=== PATIENT | female | born 1970 | race Caucasian/White ===

== ENCOUNTER 2024-05-02 08:34 | Outpatient (CLI) | payer OTHER, SELFPAY ==
--- NOTE | ~2024-05-02 | MR_ITS ---
EXAMINATION: MR brain/brain stem wo con DATE: 05/02/2024 09:08 INDICATION: Seizures TECHNIQUE: Magnetic resonance imaging (MRI) of the brain and brainstem was performed without intraven ous contrast. Sequences included sagittal and axial T1-weighted SE, axial diffusion-weighted FS SE, a xial T2*-weighted GRE, axial T2-weighted FLAIR, and axial T2-weighted FSE. Apparent diffusion coeffic ient (ADC) maps were created. COMPARISON: None. FINDINGS: There are no areas of restricted diffusion to suggest acute infarction. No intracranial hemorrhage or abnormal intracranial mass lesion. Single small focus of nonspecific increased T2-weighted signal in tensity in left frontal lobe periventricular white matter which is within normal limits and likely se quela of chronic small vessel ischemic disease.. There are no intraparenchymal signal abnormalities s een on the other pulse sequences. The ventricles are symmetric and normal in size. There are no abnor mal extra-axial fluid collections. Flow voids are seen in the cerebral arteries on the T2-weighted se quences consistent with their expected patency. Mild mucoperiosteal thickening the ethmoid sinuses. M inimal right mastoid effusion. Visualized orbits and soft tissues are unremarkable. Likely developmen mis fusion at C2-C3 and moderate disc height loss at C4-C5. IMPRESSION: 1. Normal for age brain with single focus of nonspecific white matter T2 hyperintensity right frontal lobe likely sequela of chronic small vessel ischemic disease. Reviewed, dictated and finalized at location A. [facility] IMPRESSION: 1. Normal for age brain with single focus of nonspecific white matter T2 hyperi ntensity right frontal lobe likely sequela of chronic small vessel ischemic dis ease.
== END 2024-05-02 08:35 | disposition home or self-care (01) ==
PROVIDERS: PCP Nurse Practitioner Family; Visit Provider Nurse Practitioner Family
DX: Z86.69 Personal history of other diseases of the nervous system and sense organs (principal)
CPT/HCPCS: 70551